=== PATIENT | female | born 1980 | race Caucasian/White ===

== ENCOUNTER 2021-06-14 17:06 | Emergency (ER) | payer OTHER ==
[~2021-06-14 17:06] MED LIST: ALDACTONE100 MG PO; LOESTRIN 21 1-1 EACH PO; PROZAC20 MG PO; SYNTHROID25 MCG PO
[2021-06-14 19:15] LABS: BASOPHIL 0.3 % (0-2); EOSINOPHIL 0 % (0-5); HCT 42.7 % (37.0-47.0); HGB 14.5 g/dl (12.5-16.0); LYMPHOCYTE 20.7 % (15-48); MCH 29.7 pg (25.0-31.0); MCV 87.5 fL (78.0-100.0); MONOCYTE 3.4 % (0-12); MPV 9.9 fL (6.0-9.5); NEUTROPHIL 75.3 % (41-80); NRBC 0; PLT 106 K/uL (150-400); RBC 4.88 M/uL (4.20-5.40); RDW 12.4 % (11.5-14.0)
[2021-06-14 19:16] LABS: WBC 3.2 K/uL (4.0-10.5)
[2021-06-14 19:25] LABS: ALBUMIN 3.2 g/dL (3.4-5.0); BILIRUBIN - TOTAL 0.8 mg/dL (0.2-1.0); BUN/CREAT RATIO (CALC) 11.5 RATIO; CREATININE 1.13 mg/dL (0.51-0.95); GLOBULIN (CALCULATION) 3.8 g/dL; POTASSIUM 3.4 mmol/L (3.5-5.1)
[2021-06-14 22:44] LABS: BILIRUBIN 1+ mg/dL (NEGATIVE); BLOOD 3+ Ery/uL (NEGATIVE); COLOR YELLOW (YELLOW); GLUCOSE (U) NORMAL (NORMAL); LEUKOCYTES NEGATIVE Leu/uL (NEGATIVE); NITRITE NEGATIVE (NEGATIVE); PROTEIN 2+ mg/dL (NEGATIVE); SPECIFIC GRAVITY >=1.030 (1.001-1.030)
[2021-06-14 22:51] LABS: CLARITY SLIGHTLY HAZY (CLEAR)
[2021-06-14 22:55] LABS: BACTERIA TRACE; URINARY RBC 20-50; URINARY WBC RARE
== END 2021-06-15 00:30 | disposition home or self-care (01) ==
LOC: FER 17:06
PROVIDERS: Emergency Medicine; Nurse Practitioner Family
DX: U07.1 COVID-19 (principal); I10 Essential (primary) hypertension; E03.9 Hypothyroidism, unspecified; Z79.899 Other long term (current) drug therapy; Z23 Encounter for immunization
CPT/HCPCS: 36415; 71045; 71275; 80053; 81001; 85025; 85379; J1100; J1885; J7030; M0243; Q0244; Q9967

== ENCOUNTER 2021-10-07 14:23 | Emergency (ER) | payer OTHER | END 2021-10-07 15:34 | disposition home or self-care (01) | LOC: FER 14:23 | DX: S93.602A Unspecified sprain of left foot, initial encounter (principal); E03.9 Hypothyroidism, unspecified; Z79.84 Long term (current) use of oral hypoglycemic drugs; Z79.890 Hormone replacement therapy; X50.1XXA Overexertion from prolonged static or awkward postures, initial encounter; Y92.009 Unspecified place in unspecified non-institutional (private) residence as the place of occurrence of the external cause | CPT/HCPCS: 73630 ==